=== PATIENT | female | born 1995 | race Caucasian/White ===

== ENCOUNTER 2019-10-01 19:03 | Emergency (ER) | payer MEDICAID ==
[~2019-10-01] VITALS: Ht 154.9 cm; Wt 85.3 kg
[2019-10-01 19:05] VITALS: BP 154/100
[2019-10-01] MEDS ORDERED: CYCL-259 PO (19:36)
== END 2019-10-01 20:26 | disposition home or self-care (01) ==
LOC: ED 20:00
DX: M54.2 Cervicalgia (principal); R07.89 Other chest pain; M79.10 Myalgia, unspecified site
CPT/HCPCS: 99282